=== PATIENT | female | born 1930 | race Caucasian/White ===

== ENCOUNTER 2018-12-27 17:30 | Inpatient (IN) | payer MEDICARE | END 2018-12-30 14:20 | disposition home or self-care (01) | LOC: ER 17:30 → SUR 3N 21:17 | DX: J18.1 Lobar pneumonia, unspecified organism (principal); N17.9 Acute kidney failure, unspecified; L03.211 Cellulitis of face; N18.9 Chronic kidney disease, unspecified; E11.22 Type 2 diabetes mellitus with diabetic chronic kidney disease; I50.9 Heart failure, unspecified ==

== ENCOUNTER 2019-04-24 10:55 | Inpatient (IN) | payer MEDICARE ==
[~2019-04-24] VITALS: Ht 147.3 cm; Wt 75.5 kg
[~2019-04-24 10:55] MED LIST: AMLO2.5T2 PO; CEPH500C5 PO; DOXY100C2 PO; FURO-150 PO; GLIM1TAB3 PO; LEVO50TA PO; LOVA20TA2 PO; OSC500T PO; OXYB5TAB16 PO
[2019-04-24 11:27] LABS: BASOPHILS # (AUTO) 0.1 X10'3 (0-0.2); BASOPHILS % (AUTO) 0.9 % (0-1); EOSINOPHILS # (AUTO) 0.1 X10'3 (0-0.9); EOSINOPHILS % (AUTO) 2.3 % (0-6); HEMATOCRIT 36.5 % (35.0-45.0); HEMOGLOBIN 12.2 g/dl (12.0-16.0); LYMPHOCYTES % (AUTO) 15.2 % (21-51); MEAN CORPUSCULAR HEMOGLOBIN 33.7 PG (27.0-31.0); MEAN CORPUSCULAR HGB CONC 33.3 g/dL (33.0-36.5); MEAN CORPUSCULAR VOLUME 101.3 FL (78-98); MEAN PLATELET VOLUME 8.8 FL (7.4-10.4); MONOCYTES # (AUTO) 0.4 X10'3 (0-0.9); MONOCYTES % (AUTO) 5.5 % (2-12); NEUTROPHILS % (AUTO) 76.1 % (42-75); PLATELET COUNT 245 X10'3 (140-440); RED BLOOD COUNT 3.61 X10'6 (4.20-5.60); WHITE BLOOD COUNT 6.6 X10'3 (4.5-11.0)
[2019-04-24 11:38] LABS: PARTIAL THROMBOPLASTIN TIME 28 SECONDS (22-32)
[2019-04-24] MEDS ORDERED: morphine 4 MG/ML inj SYRINge IV PRN (12:25)
[2019-04-24] MEDS ORDERED: normal saline 1000ML IV soln IVB ONE (12:25)
[2019-04-24] MEDS ORDERED: ondansetron/PF 4mg/2ml inj IV ONE (12:25)
[2019-04-24 12:48] LABS: ALANINE AMINOTRANSFERASE 120 U/L (12-78); ALBUMIN 3.5 G/DL (3.4-5.0); ALBUMIN/GLOBULIN RATIO 0.9 (1.1-1.5); ALKALINE PHOSPHATASE 232 IU/L (46-116); ANION GAP 11 (8-16); ASPARTATE AMINO TRANSFERASE 37 U/L (10-37); BILIRUBIN,TOTAL 0.3 MG/DL (0.1-1.0); BLOOD UREA NITROGEN 47 MG/DL (7-18); BUN/CREATININE RATIO 27.2 (6.6-38.0); CALCIUM 9.3 MG/DL (8.5-10.1); CHLORIDE 104 MMOL/L (99-107); CREATININE 1.73 MG/DL (0.40-0.90); GLUCOSE 254 MG/DL (70-104); POTASSIUM 4.3 MMOL/L (3.5-5.1); SODIUM 139 MMOL/L (135-145); TOTAL CARBON DIOXIDE 23.6 MMOL/L (24-32); TOTAL PROTEIN 7.4 G/DL (6.4-8.2); eGFR 28 ML/MIN
--- NOTE | 2019-04-24 13:02 | NUR ---
GOT CALL FOR LAB REGARDING PT PROCALCITONIN ORDERS,SPOKE TO DR PAIZ WHETHER PT NEED 2 PROCAL OR ONE ? PER MD IT WAS DUPLICATE HE JUST NEED ONE PROCAL.NOTIFIED THE LAB.
[2019-04-24 13:11] LABS: C-REACTIVE PROTEIN 0.83 MG/DL (0.0-0.5)
--- NOTE | 2019-04-24 13:28 | NUR ---
pt to ct scan.will start iv fluid once pt is back.
--- NOTE | 2019-04-24 14:50 | NUR ---
ultrasound at bedside
[2019-04-24] MEDS ORDERED: CefTRIAXone 2gm/D5W 50ml 50 ML IV ONE (15:10)
[2019-04-24] MEDS ORDERED: BETA1TAB20 PO (15:30)
[2019-04-24] MEDS ORDERED: FURO40TA4 PO (15:30)
[2019-04-24] MEDS ORDERED: LEVO100T PO (15:30)
--- NOTE | 2019-04-24 15:49 | NUR ---
Spoke to James. Pt NPO after MN for surgery tomorrow.
[2019-04-24] MEDS ORDERED: acetaminophen 325mg tablet PO PRN ×2 (16:35)
[2019-04-24] MEDS: K and/or MAG REPLACEMENT MC SCH (16:35)
[2019-04-24] MEDS ORDERED: diphenhydrAMINE 25mg capsule PO PRN (16:35)
[2019-04-24] MEDS ORDERED: dextrose ORAL solution 15 GM/59 ML bottle PO PRN ×2 (16:35)
[2019-04-24] MEDS ORDERED: HYDROcodone/acetaminophen 5mg/325mg tablet PO PRN (16:35)
[2019-04-24] MEDS ORDERED: morphine 2 MG/ML inj. syringe IV PRN (16:35)
[2019-04-24] MEDS ORDERED: ondansetron/PF 4mg/2ml inj IV PRN (16:35)
[2019-04-24] MEDS ORDERED: magnesium 4gm in 100ml NS 100 ML IV PRN (16:35)
[2019-04-24] MEDS ORDERED: mag hydrox/Alum hydrox/simeth 30ml oral suspension PO PRN (16:35)
[2019-04-24] MEDS ORDERED: magnesium 2GM in 50ml NS 50 ML IV PRN (16:35)
[2019-04-24] MEDS ORDERED: insulin Lispro (HumaLOG) vial - multi-dose SQ SCH (16:35)
[2019-04-24] MEDS ORDERED: MESSAGE TO PHARMACY PO ONE (16:35)
[2019-04-24] MEDS ORDERED: magnesium Cl slow-release 64mg tablet PO PRN (16:35)
[2019-04-24] MEDS ORDERED: glucagon, human recombinant 1mg kit SUBCUT PRN (16:35)
[2019-04-24] MEDS ORDERED: dextrose 50%-water 50ml dispensing syringe IV PRN ×2 (16:35)
[2019-04-24] MEDS ORDERED: potassium CL 10mEq/100ml bag 100 ML IV PRN ×2 (16:35)
[2019-04-24] MEDS ORDERED: magnesium hydroxide 30ml (MOM) UD suspension PO PRN (16:35)
[2019-04-24] MEDS ORDERED: potassium Cl 20 mEq SR tablet PO PRN ×2 (16:35)
[2019-04-24 17:27] LABS: HEMOGLOBIN A1C 6.3 % (4.5-6.2); LIPASE 210 U/L (73-393)
[2019-04-24] MEDS: normal saline 1000ml 1,000 ML IV SCH (18:26)
--- NOTE | 2019-04-24 18:53 | NUR ---
report called from ER, Steven ANGUIANO. awaiting pt arrival to unit
[2019-04-24] MEDS: morphine 2 MG/ML inj. syringe IV PRN (18:56)
[2019-04-24 19:00] VITALS: BP 145/73
--- NOTE | 2019-04-24 19:00 | NUR ---
pt arrived to unit via gurney, accompanied by daughter. vital signs taken, still complaining of pain in RUQ despite pain medication given in ER prior to arrival. will continue to monitor
[2019-04-24] MEDS: HYDROcodone/acetaminophen 10/325mg tab PO PRN (19:43)
[2019-04-24] MEDS: heparin, porcine 5000 units/ml vial SQ SCH (20:55)
[2019-04-24] MEDS: insulin glargine (Lantus) pen - multi-dose SQ SCH (21:00)
[2019-04-24] MEDS ORDERED: temazepam 15mg capsule PO PRN (21:00)
[2019-04-25] VITALS: BP 144/67
[2019-04-25] MEDS: normal saline 1000ml 1,000 ML IV SCH ×3 (02:35→16:51)
[2019-04-25 03:54] VITALS: BP 144/67
[2019-04-25 05:34] LABS: BASOPHILS % (AUTO) 0.8 % (0-1); EOSINOPHILS # (AUTO) 0.2 X10'3 (0-0.9); HEMATOCRIT 31.6 % (35.0-45.0); HEMOGLOBIN 10.7 g/dl (12.0-16.0); LYMPHOCYTES # (AUTO) 0.7 X10'3 (1.1-4.8); LYMPHOCYTES % (AUTO) 12.7 % (21-51); MEAN CORPUSCULAR HEMOGLOBIN 34.9 PG (27.0-31.0); MEAN CORPUSCULAR VOLUME 102.7 FL (78-98); MEAN PLATELET VOLUME 8.7 FL (7.4-10.4); MONOCYTES # (AUTO) 0.5 X10'3 (0-0.9); MONOCYTES % (AUTO) 8.8 % (2-12); NEUTROPHILS # (AUTO) 3.9 X10'3 (1.8-7.7); NEUTROPHILS % (AUTO) 74.7 % (42-75); PLATELET COUNT 199 X10'3 (140-440); RED BLOOD COUNT 3.08 X10'6 (4.20-5.60); RED CELL DISTRIBUTION WIDTH 14.1 % (11.5-14.5); WHITE BLOOD COUNT 5.2 X10'3 (4.5-11.0)
[2019-04-25 05:49] LABS: ALANINE AMINOTRANSFERASE 88 U/L (12-78); ALBUMIN 2.8 G/DL (3.4-5.0); ALBUMIN/GLOBULIN RATIO 0.8 (1.1-1.5); ALKALINE PHOSPHATASE 187 IU/L (46-116); ANION GAP 7 (8-16); ASPARTATE AMINO TRANSFERASE 28 U/L (10-37); BILIRUBIN,TOTAL 0.2 MG/DL (0.1-1.0); BLOOD UREA NITROGEN 41 MG/DL (7-18); BUN/CREATININE RATIO 26.1 (6.6-38.0); CALCIUM 8.6 MG/DL (8.5-10.1); CHLORIDE 112 MMOL/L (99-107); CHOL/HDL RATIO 3.2 (0.00-4.99); CHOLESTEROL 145 MG/DL (0-200); CREATININE 1.57 MG/DL (0.40-0.90); GLUCOSE 85 MG/DL (70-104); HDL CHOLESTEROL 45 MG/DL (35-60); LDL CHOLESTEROL 72 MG/DL (50-100); MAGNESIUM 2.3 MG/DL (1.5-2.4); PHOSPHORUS 4.4 MG/DL (2.3-4.5); POTASSIUM 4.3 MMOL/L (3.5-5.1); SODIUM 145 MMOL/L (135-145); TOTAL CARBON DIOXIDE 26.1 MMOL/L (24-32); TOTAL PROTEIN 6.1 G/DL (6.4-8.2); TRIGLYCERIDES 154 MG/DL (20-135); eGFR 31 ML/MIN
[2019-04-25] MEDS: morphine 2 MG/ML inj. syringe IV PRN ×3 (06:20→23:20)
--- NOTE | 2019-04-25 06:39 | NUR ---
Problems reprioritized. Patient report given, questions answered & plan of care reviewed with SILVIO Sharp.
[2019-04-25 07:10] VITALS: BP 113/50
[2019-04-25] MEDS: beta-carotene(A) w/C & E + minerals tab PO SCH (08:00)
[2019-04-25] MEDS: atorvastatin 10mg tablet PO SCH (08:00)
[2019-04-25] MEDS: levoTHYROXINE 100mcg tablet PO SCH (08:00)
[2019-04-25] MEDS: calcium carbonate 500mg tablet PO SCH (08:00)
[2019-04-25] MEDS: amLODIPine 2.5mg tablet PO SCH (08:00)
[2019-04-25] MEDS: CefTRIAXone/D5W-Rocephin 1gm 50 ML IV SCH (08:00)
[2019-04-25] MEDS ORDERED: sincalide inj 1.6 MCG in normal saline 50ml IV soln 50 ML IV ONE (08:00)
[2019-04-25] MEDS: K and/or MAG REPLACEMENT MC SCH (08:00)
[2019-04-25] MEDS: heparin, porcine 5000 units/ml vial SQ SCH ×2 (08:00→20:37)
[2019-04-25] MEDS ORDERED: ringers solution, lacted 1,000 ML IV SCH (10:59)
[2019-04-25 11:00] VITALS: BP 115/60
[2019-04-25] MEDS ORDERED: ondansetron/PF 4mg/2ml inj IV PRN (11:00)
[2019-04-25] MEDS ORDERED: morphine 4 MG/ML inj SYRINge IV PRN ×2 (11:00)
[2019-04-25] MEDS ORDERED: meperidine/PF 25mg/ml syringe IV PRN ×3 (11:00)
[2019-04-25] MEDS ORDERED: proCHLORperazine 10 MG/2 ml inj IV PRN (11:00)
--- NOTE | 2019-04-25 18:19 | NUR ---
Problems reprioritized. Patient report given, questions answered & plan of care reviewed with SILVIO Morel.
--- NOTE | 2019-04-25 18:38 | NUR ---
Patient in room [facility]. I have received report from SILVIO Armstrong and had the opportunity to ask questions and assume patient care. Addendum: 04/25/19 at 1839 by Jaja Valenzuela RN Amended: Links added.
--- NOTE | 2019-04-25 20:44 | NUR ---
Dr. Brooks seen patient tonight and stated its ok to give heparin tonight for patient.
[2019-04-25] MEDS: insulin glargine (Lantus) pen - multi-dose SQ SCH (21:00)
[2019-04-26] VITALS (18 sets, daily range): BP systolic 112–167; BP diastolic 60–83
--- NOTE | 2019-04-26 06:10 | NUR ---
Patient in room [facility]. I have received report from Maria Teresa Rivera RN and had the opportunity to ask questions and assume patient care.
[2019-04-26 06:12] LABS: ALANINE AMINOTRANSFERASE 66 U/L (12-78); ALBUMIN 2.7 G/DL (3.4-5.0); ALBUMIN/GLOBULIN RATIO 0.8 (1.1-1.5); ALKALINE PHOSPHATASE 176 IU/L (46-116); ANION GAP 9 (8-16); ASPARTATE AMINO TRANSFERASE 20 U/L (10-37); BILIRUBIN,TOTAL 0.2 MG/DL (0.1-1.0); BLOOD UREA NITROGEN 35 MG/DL (7-18); BUN/CREATININE RATIO 26.3 (6.6-38.0); CALCIUM 8.9 MG/DL (8.5-10.1); CHLORIDE 111 MMOL/L (99-107); CREATININE 1.33 MG/DL (0.40-0.90); GLUCOSE 99 MG/DL (70-104); MAGNESIUM 2.1 MG/DL (1.5-2.4); PHOSPHORUS 3.9 MG/DL (2.3-4.5); POTASSIUM 3.9 MMOL/L (3.5-5.1); SODIUM 143 MMOL/L (135-145); TOTAL CARBON DIOXIDE 22.8 MMOL/L (24-32); eGFR 38 ML/MIN
--- NOTE | 2019-04-26 06:13 | NUR ---
Problems reprioritized. Patient report given, questions answered & plan of care reviewed with SILVIO STARKS. Addendum: 04/26/19 at 0613 by Jaja Valenzuela RN Amended: Links added.
[2019-04-26 06:14] LABS: BASOPHILS # (AUTO) 0.1 X10'3 (0-0.2); BASOPHILS % (AUTO) 1.1 % (0-1); EOSINOPHILS # (AUTO) 0.2 X10'3 (0-0.9); EOSINOPHILS % (AUTO) 4.3 % (0-6); HEMATOCRIT 31.3 % (35.0-45.0); HEMOGLOBIN 10.5 g/dl (12.0-16.0); LYMPHOCYTES # (AUTO) 0.7 X10'3 (1.1-4.8); MEAN CORPUSCULAR HGB CONC 33.7 g/dL (33.0-36.5); MEAN CORPUSCULAR VOLUME 106.9 FL (78-98); MEAN PLATELET VOLUME 8.9 FL (7.4-10.4); MONOCYTES # (AUTO) 0.5 X10'3 (0-0.9); MONOCYTES % (AUTO) 10.2 % (2-12); NEUTROPHILS # (AUTO) 3.6 X10'3 (1.8-7.7); NEUTROPHILS % (AUTO) 70.4 % (42-75); PLATELET COUNT 184 X10'3 (140-440); RED BLOOD COUNT 2.93 X10'6 (4.20-5.60); RED CELL DISTRIBUTION WIDTH 14.1 % (11.5-14.5); WHITE BLOOD COUNT 5.1 X10'3 (4.5-11.0)
[2019-04-26] MEDS: normal saline 1000ml 1,000 ML IV SCH ×2 (06:41→16:08)
[2019-04-26] MEDS: furosemide 40mg tablet PO SCH (06:51)
[2019-04-26] MEDS: K and/or MAG REPLACEMENT MC SCH (06:51)
[2019-04-26] MEDS: calcium carbonate 500mg tablet PO SCH (06:52)
[2019-04-26] MEDS: atorvastatin 10mg tablet PO SCH (06:52)
[2019-04-26] MEDS: levoTHYROXINE 100mcg tablet PO SCH (06:52)
[2019-04-26] MEDS: amLODIPine 2.5mg tablet PO SCH (06:52)
[2019-04-26] MEDS: beta-carotene(A) w/C & E + minerals tab PO SCH (06:52)
[2019-04-26 07:46] LABS: PARTIAL THROMBOPLASTIN TIME 29 SECONDS (22-32)
[2019-04-26] MEDS: CefTRIAXone/D5W-Rocephin 1gm 50 ML IV SCH (08:00)
[2019-04-26] MEDS: morphine 2 MG/ML inj. syringe IV PRN (08:08)
--- NOTE | 2019-04-26 08:12 | NUR ---
Pt off the floor to OR
[2019-04-26] MEDS ORDERED: LIDOcaine 1%/PF 5ML 10 MG/ML VIAL ONE (09:13)
[2019-04-26] MEDS ORDERED: sevoflurane 250ml liquid IH ONE (09:13)
[2019-04-26] MEDS ORDERED: ketorolac trometh. 30mg/ml inj. ONE (09:13)
[2019-04-26] MEDS ORDERED: glycopyrrolate 0.2mg/ml inj ONE (09:13)
[2019-04-26] MEDS ORDERED: dexamethasone sod phosphate 10mg/ml inj ONE (09:13)
[2019-04-26] MEDS ORDERED: neostigmine methylsulfate 1 MG/ML 10ml vial ONE (09:13)
[2019-04-26] MEDS ORDERED: ondansetron/PF 4mg/2ml inj IV PRN (09:15)
[2019-04-26] MEDS ORDERED: meperidine/PF 25mg/ml syringe IV PRN ×3 (09:15)
[2019-04-26] MEDS ORDERED: proCHLORperazine 10 MG/2 ml inj IV PRN (09:15)
[2019-04-26] MEDS ORDERED: morphine 4 MG/ML inj SYRINge IV PRN ×2 (09:15)
[2019-04-26] MEDS ORDERED: ringers solution, lacted 1,000 ML IV SCH (09:15)
[2019-04-26] MEDS ORDERED: midazolam 2 mg/2 ml injection ONE (09:22)
[2019-04-26] MEDS ORDERED: fentaNYL/PF 50MCG/1 ML 2ML syringe ONE (09:22)
[2019-04-26] MEDS ORDERED: propofol inj 20 ML IV ONE (09:30)
[2019-04-26] MEDS ORDERED: ondansetron/PF 4mg/2ml inj ONE (09:30)
[2019-04-26] MEDS ORDERED: LIDOcaine 2% (20mg/ml) 5ml vial ONE (09:30)
[2019-04-26] MEDS ORDERED: ceFAZolin 1000mg inj ONE (09:31)
[2019-04-26] MEDS ORDERED: BUPIVAcaine/PF 2.5 mg/ml (0.25%) 30ml vial ONE (09:31)
[2019-04-26] MEDS ORDERED: meperidine/PF 50mg/ml syringe ONE (10:52)
[2019-04-26] MEDS ORDERED: acetaminophen 1,000mg/100ml IV 100 ML IV ONE (10:53)
[2019-04-26] MEDS ORDERED: rocuronium 10mg/ml inj IV ONE (11:09)
--- NOTE | 2019-04-26 11:30 | NUR ---
Received from OR via MEDICAL BED, accompanied by Anesthesiologist DR. WALL and report given by Anesthesiolgist. PT ARRIVED SLEEPING. VSS ON 10L MASK. PUSLES AND COMPUTER SOFTWARE ENGINEER WNL. DRESSING TO ABD CDI. WILLY & BILIARY DRAINS NOTED. FC TO GRAVITY DRAIN. SCD IN PLACE
--- NOTE | 2019-04-26 12:00 | NUR ---
Received report from ORAL THERAPIST.
--- NOTE | 2019-04-26 12:15 | NUR ---
UNABLE TO ADMIN 1200 ACCUCHECK. PT IN SURGERY
--- NOTE | 2019-04-26 12:30 | NUR ---
Report called to receiving nurse TEREZA RN. Transferred via MEDICAL BED TO ROOM 355A. DAUGHTER AT BEDSIDE. NO Belongings BROUGHT WITH PT TO RR. Special Issues communicated to receiving nurse. VSS ON 4L NC
--- NOTE | 2019-04-26 12:30 | NUR ---
Pt arrived to room [facility] from [facility]. Addendum: 04/26/19 at 1336 by Bernadine Heaton RN NG tube in place upon arrival.
--- NOTE | 2019-04-26 18:20 | NUR ---
Problems reprioritized. Patient report given, questions answered & plan of care reviewed with Maria Teresa Rivera RN.
--- NOTE | 2019-04-26 18:38 | NUR ---
Patient in room [facility]. I have received report from SILVIO Colindres and had the opportunity to ask questions and assume patient care. Addendum: 04/26/19 at 1838 by Jaja Valenzuela RN Amended: Links added.
[2019-04-26] MEDS: insulin glargine (Lantus) pen - multi-dose SQ SCH (21:00)
[2019-04-27] VITALS: BP 131/74
[2019-04-27] MEDS: normal saline 1000ml 1,000 ML IV SCH ×3 (02:00→22:43)
[2019-04-27] MEDS: morphine 2 MG/ML inj. syringe IV PRN ×4 (04:18→20:00)
--- NOTE | 2019-04-27 06:05 | NUR ---
Patient in room [facility]. I have received report from Maria Teresa Rivera RN and had the opportunity to ask questions and assume patient care.
[2019-04-27 06:13] LABS: BASOPHILS % (AUTO) 0.4 % (0-1); EOSINOPHILS % (AUTO) 0.3 % (0-6); HEMATOCRIT 29.6 % (35.0-45.0); HEMOGLOBIN 9.9 g/dl (12.0-16.0); LYMPHOCYTES # (AUTO) 0.7 X10'3 (1.1-4.8); LYMPHOCYTES % (AUTO) 8.2 % (21-51); MEAN CORPUSCULAR HEMOGLOBIN 34.1 PG (27.0-31.0); MEAN CORPUSCULAR HGB CONC 33.3 g/dL (33.0-36.5); MEAN CORPUSCULAR VOLUME 102.5 FL (78-98); MEAN PLATELET VOLUME 9.2 FL (7.4-10.4); MONOCYTES # (AUTO) 0.8 X10'3 (0-0.9); MONOCYTES % (AUTO) 9.6 % (2-12); NEUTROPHILS # (AUTO) 6.7 X10'3 (1.8-7.7); NEUTROPHILS % (AUTO) 81.5 % (42-75); PLATELET COUNT 191 X10'3 (140-440); RED BLOOD COUNT 2.89 X10'6 (4.20-5.60); RED CELL DISTRIBUTION WIDTH 14.1 % (11.5-14.5); WHITE BLOOD COUNT 8.2 X10'3 (4.5-11.0)
--- NOTE | 2019-04-27 06:14 | NUR ---
Problems reprioritized. Patient report given, questions answered & plan of care reviewed with SILVIO Colindres.
[2019-04-27 06:30] VITALS: BP 134/68
[2019-04-27 06:30] LABS: ALANINE AMINOTRANSFERASE 79 U/L (12-78); ALBUMIN 2.6 G/DL (3.4-5.0); ALBUMIN/GLOBULIN RATIO 0.8 (1.1-1.5); ALKALINE PHOSPHATASE 162 IU/L (46-116); ANION GAP 12 (8-16); ASPARTATE AMINO TRANSFERASE 42 U/L (10-37); BILIRUBIN,TOTAL 0.2 MG/DL (0.1-1.0); BLOOD UREA NITROGEN 38 MG/DL (7-18); CALCIUM 8.4 MG/DL (8.5-10.1); CHLORIDE 114 MMOL/L (99-107); CREATININE 1.52 MG/DL (0.40-0.90); GLUCOSE 97 MG/DL (70-104); PHOSPHORUS 4.2 MG/DL (2.3-4.5); POTASSIUM 4.3 MMOL/L (3.5-5.1); SODIUM 145 MMOL/L (135-145); TOTAL CARBON DIOXIDE 19.4 MMOL/L (24-32); TOTAL PROTEIN 5.8 G/DL (6.4-8.2); eGFR 32 ML/MIN
[2019-04-27] MEDS: K and/or MAG REPLACEMENT MC SCH (07:21)
[2019-04-27] MEDS: amLODIPine 2.5mg tablet PO SCH (09:38)
[2019-04-27] MEDS: CefTRIAXone/D5W-Rocephin 1gm 50 ML IV SCH (09:38)
[2019-04-27] MEDS: beta-carotene(A) w/C & E + minerals tab PO SCH (09:38)
[2019-04-27] MEDS: levoTHYROXINE 100mcg tablet PO SCH (09:39)
[2019-04-27] MEDS: atorvastatin 10mg tablet PO SCH (09:39)
[2019-04-27] MEDS: calcium carbonate 500mg tablet PO SCH (09:39)
[2019-04-27] MEDS ORDERED: ketorolac tromethamine 15mg/ml inj. IV ONE (10:30)
[2019-04-27 11:00] VITALS: BP 152/80
[2019-04-27 18:00] VITALS: BP 123/79
--- NOTE | 2019-04-27 18:05 | NUR ---
Problems reprioritized. Patient report given, questions answered & plan of care reviewed with SILVIO Vásquez.
[2019-04-27] MEDS: HYDROcodone/acetaminophen 10/325mg tab PO PRN ×2 (18:54→22:48)
[2019-04-27] MEDS: lactobacillus rhamnosus 10,000 MMU CELLS/CAPSULE PO SCH (20:08)
[2019-04-27] MEDS: heparin, porcine 5000 units/ml vial SQ SCH (20:12)
[2019-04-27] MEDS: insulin glargine (Lantus) pen - multi-dose SQ SCH (21:00)
[2019-04-28] VITALS: BP 141/69
[2019-04-28] MEDS: morphine 2 MG/ML inj. syringe IV PRN ×4 (02:22→19:19)
[2019-04-28] MEDS: HYDROcodone/acetaminophen 10/325mg tab PO PRN ×4 (05:36→23:31)
[2019-04-28 06:04] LABS: BASOPHILS % (AUTO) 0.6 % (0-1); EOSINOPHILS # (AUTO) 0.2 X10'3 (0-0.9); EOSINOPHILS % (AUTO) 2.8 % (0-6); HEMATOCRIT 27.3 % (35.0-45.0); LYMPHOCYTES # (AUTO) 0.9 X10'3 (1.1-4.8); LYMPHOCYTES % (AUTO) 10.6 % (21-51); MEAN CORPUSCULAR HEMOGLOBIN 33.7 PG (27.0-31.0); MEAN CORPUSCULAR VOLUME 102.4 FL (78-98); MONOCYTES # (AUTO) 0.7 X10'3 (0-0.9); MONOCYTES % (AUTO) 8.3 % (2-12); NEUTROPHILS # (AUTO) 6.4 X10'3 (1.8-7.7); NEUTROPHILS % (AUTO) 77.7 % (42-75); PLATELET COUNT 180 X10'3 (140-440); RED BLOOD COUNT 2.67 X10'6 (4.20-5.60); WHITE BLOOD COUNT 8.2 X10'3 (4.5-11.0)
--- NOTE | 2019-04-28 06:05 | NUR ---
Patient in room [facility]. I have received report from SILVIO Vásquez and had the opportunity to ask questions and assume patient care.
--- NOTE | 2019-04-28 06:11 | NUR ---
Problems reprioritized. Patient report given, questions answered & plan of care reviewed with Bernadine RN.
[2019-04-28 06:30] VITALS: BP 143/75
[2019-04-28 06:31] LABS: ALANINE AMINOTRANSFERASE 60 U/L (12-78); ALBUMIN 2.5 G/DL (3.4-5.0); ALBUMIN/GLOBULIN RATIO 0.8 (1.1-1.5); ALKALINE PHOSPHATASE 139 IU/L (46-116); ANION GAP 11 (8-16); ASPARTATE AMINO TRANSFERASE 27 U/L (10-37); BILIRUBIN,TOTAL 0.2 MG/DL (0.1-1.0); BLOOD UREA NITROGEN 31 MG/DL (7-18); BUN/CREATININE RATIO 22.3 (6.6-38.0); CALCIUM 8.4 MG/DL (8.5-10.1); CHLORIDE 114 MMOL/L (99-107); CREATININE 1.39 MG/DL (0.40-0.90); GLUCOSE 97 MG/DL (70-104); MAGNESIUM 1.8 MG/DL (1.5-2.4); POTASSIUM 4.2 MMOL/L (3.5-5.1); SODIUM 145 MMOL/L (135-145); TOTAL CARBON DIOXIDE 20.5 MMOL/L (24-32); TOTAL PROTEIN 5.7 G/DL (6.4-8.2); eGFR 36 ML/MIN
[2019-04-28] MEDS: K and/or MAG REPLACEMENT MC SCH (07:14)
[2019-04-28] MEDS ORDERED: enoxaparin 30mg/0.3ml syringe SUBCUT SCH (08:00)
[2019-04-28] MEDS: CefTRIAXone/D5W-Rocephin 1gm 50 ML IV SCH (08:02)
[2019-04-28] MEDS: normal saline 1000ml 1,000 ML IV SCH ×2 (08:02→21:19)
[2019-04-28] MEDS: amLODIPine 2.5mg tablet PO SCH (08:09)
[2019-04-28] MEDS: furosemide 40mg tablet PO SCH (08:09)
[2019-04-28] MEDS: calcium carbonate 500mg tablet PO SCH (08:09)
[2019-04-28] MEDS: beta-carotene(A) w/C & E + minerals tab PO SCH (08:09)
[2019-04-28] MEDS: levoTHYROXINE 100mcg tablet PO SCH (08:09)
[2019-04-28] MEDS: lactobacillus rhamnosus 10,000 MMU CELLS/CAPSULE PO SCH ×2 (08:09→19:19)
[2019-04-28] MEDS: atorvastatin 10mg tablet PO SCH (08:09)
[2019-04-28] MEDS: heparin, porcine 5000 units/ml vial SQ SCH ×2 (08:09→19:19)
[2019-04-28 11:00] VITALS: BP 128/76
--- NOTE | 2019-04-28 18:15 | NUR ---
Patient in room [facility]. I have received report from SILVIO Colindres and had the opportunity to ask questions and assume patient care.
--- NOTE | 2019-04-28 18:40 | NUR ---
Problems reprioritized. Patient report given, questions answered & plan of care reviewed with SILVIO Contreras.
[2019-04-28 20:00] VITALS: BP 143/64
[2019-04-28] MEDS: insulin glargine (Lantus) pen - multi-dose SQ SCH (21:00)
[2019-04-29] VITALS: BP 162/79
[2019-04-29] MEDS: morphine 2 MG/ML inj. syringe IV PRN ×2 (04:34→12:51)
[2019-04-29 05:31] LABS: BASOPHILS % (AUTO) 0.4 % (0-1); EOSINOPHILS # (AUTO) 0.2 X10'3 (0-0.9); EOSINOPHILS % (AUTO) 2.8 % (0-6); HEMATOCRIT 26.7 % (35.0-45.0); LYMPHOCYTES # (AUTO) 0.8 X10'3 (1.1-4.8); LYMPHOCYTES % (AUTO) 11.3 % (21-51); MEAN CORPUSCULAR HGB CONC 33.8 g/dL (33.0-36.5); MEAN CORPUSCULAR VOLUME 103.5 FL (78-98); MEAN PLATELET VOLUME 9.2 FL (7.4-10.4); MONOCYTES # (AUTO) 0.6 X10'3 (0-0.9); MONOCYTES % (AUTO) 8.1 % (2-12); NEUTROPHILS # (AUTO) 5.7 X10'3 (1.8-7.7); NEUTROPHILS % (AUTO) 77.4 % (42-75); PLATELET COUNT 192 X10'3 (140-440); RED BLOOD COUNT 2.58 X10'6 (4.20-5.60); WHITE BLOOD COUNT 7.3 X10'3 (4.5-11.0)
[2019-04-29 05:49] LABS: ALANINE AMINOTRANSFERASE 48 U/L (12-78); ALBUMIN 2.5 G/DL (3.4-5.0); ALBUMIN/GLOBULIN RATIO 0.7 (1.1-1.5); ALKALINE PHOSPHATASE 130 IU/L (46-116); ANION GAP 12 (8-16); ASPARTATE AMINO TRANSFERASE 21 U/L (10-37); BILIRUBIN,TOTAL 0.2 MG/DL (0.1-1.0); BLOOD UREA NITROGEN 25 MG/DL (7-18); BUN/CREATININE RATIO 18.5 (6.6-38.0); CALCIUM 8.8 MG/DL (8.5-10.1); CHLORIDE 112 MMOL/L (99-107); CREATININE 1.35 MG/DL (0.40-0.90); GLUCOSE 106 MG/DL (70-104); MAGNESIUM 1.6 MG/DL (1.5-2.4); PHOSPHORUS 2.9 MG/DL (2.3-4.5); POTASSIUM 3.8 MMOL/L (3.5-5.1); SODIUM 143 MMOL/L (135-145); TOTAL CARBON DIOXIDE 18.9 MMOL/L (24-32); eGFR 37 ML/MIN
--- NOTE | 2019-04-29 06:30 | NUR ---
Problems reprioritized. Patient report given, questions answered & plan of care reviewed with SILVIO Jo.
[2019-04-29 07:00] VITALS: BP 144/71
[2019-04-29] MEDS: calcium carbonate 500mg tablet PO SCH (08:00)
[2019-04-29] MEDS: K and/or MAG REPLACEMENT MC SCH (08:00)
[2019-04-29] MEDS: CefTRIAXone/D5W-Rocephin 1gm 50 ML IV SCH (08:43)
[2019-04-29] MEDS: lactobacillus rhamnosus 10,000 MMU CELLS/CAPSULE PO SCH ×2 (08:44→19:12)
[2019-04-29] MEDS: levoTHYROXINE 100mcg tablet PO SCH (08:44)
[2019-04-29] MEDS: beta-carotene(A) w/C & E + minerals tab PO SCH (08:44)
[2019-04-29] MEDS: amLODIPine 2.5mg tablet PO SCH (08:44)
[2019-04-29] MEDS: heparin, porcine 5000 units/ml vial SQ SCH ×2 (08:45→19:13)
[2019-04-29] MEDS: normal saline 1000ml 1,000 ML IV SCH ×2 (08:53→18:34)
[2019-04-29] MEDS: HYDROcodone/acetaminophen 10/325mg tab PO PRN ×3 (08:53→19:12)
[2019-04-29] MEDS: atorvastatin 10mg tablet PO SCH (08:56)
[2019-04-29 11:00] VITALS: BP 143/80
--- NOTE | 2019-04-29 11:28 | NUR ---
Initial: Pt presented with c/o abdominal pain and admit for choledocholithiasis, now s/p open cholecystectomy. During procedure a mass in the biliary duct was observed, pending pathology results. Pt with WILLY and biliary drain with 600 mL output per I&O. Per RN pt continues to c/o abdominal pain and still with hypoactive bowel sounds and minimal gas with LBM 04/23. Pt currently with no routine bowel care, d/w RN who agrees to d/w MD. Pt currently on clear liquid diet. Will continue to follow. Recommendations: 1) Advance to CHO controlled diet once medically indicated per MD 2) Monitor need for ONS 3) Routine bowel care 4) Wt per rx Addendum: 04/29/19 at [address] Amended: Links added.
--- NOTE | 2019-04-29 18:33 | NUR ---
Patient in room [facility]. I have received report from SILVIO Jo and had the opportunity to ask questions and assume patient care.
[2019-04-29 22:32] VITALS: BP 112/64
[2019-04-30] MEDS: HYDROcodone/acetaminophen 10/325mg tab PO PRN ×3 (00:21→20:34)
[2019-04-30 00:26] VITALS: BP 142/77
[2019-04-30] MEDS: normal saline 1000ml 1,000 ML IV SCH ×2 (02:35→04:35)
[2019-04-30] MEDS: morphine 2 MG/ML inj. syringe IV PRN ×3 (05:02→17:17)
--- NOTE | 2019-04-30 06:21 | NUR ---
Problems reprioritized. Patient report given, questions answered & plan of care reviewed with SILVIO Jo.
[2019-04-30 08:00] VITALS: BP 127/63
[2019-04-30] MEDS: K and/or MAG REPLACEMENT MC SCH (08:00)
[2019-04-30] MEDS: CefTRIAXone/D5W-Rocephin 1gm 50 ML IV SCH (09:03)
[2019-04-30] MEDS: atorvastatin 10mg tablet PO SCH (09:09)
[2019-04-30] MEDS: lactobacillus rhamnosus 10,000 MMU CELLS/CAPSULE PO SCH ×2 (09:09→20:34)
[2019-04-30] MEDS: calcium carbonate 500mg tablet PO SCH (09:09)
[2019-04-30] MEDS: beta-carotene(A) w/C & E + minerals tab PO SCH (09:09)
[2019-04-30] MEDS: furosemide 40mg tablet PO SCH (09:09)
[2019-04-30] MEDS: amLODIPine 2.5mg tablet PO SCH (09:09)
[2019-04-30] MEDS: levoTHYROXINE 100mcg tablet PO SCH (09:09)
[2019-04-30] MEDS: heparin, porcine 5000 units/ml vial SQ SCH ×2 (09:10→20:35)
[2019-04-30] MEDS: piperacillin/tazo 3.375gm/50ml 50 ML IV SCH ×2 (10:23→16:44)
[2019-04-30 11:00] VITALS: BP 139/62
[2019-04-30] MEDS ORDERED: magnesium 4gm in 100ml NS 100 ML IV PRN (16:40)
[2019-04-30] MEDS ORDERED: potassium Cl 20 mEq SR tablet PO PRN ×2 (16:40)
[2019-04-30] MEDS ORDERED: magnesium Cl slow-release 64mg tablet PO PRN (16:40)
[2019-04-30] MEDS ORDERED: potassium CL 10mEq/100ml bag 100 ML IV PRN (16:40)
[2019-04-30 17:53] LABS: % IRON SATURATION 15 % (11-46); IRON 30 UG/DL (49-151); TOTAL IRON BINDING CAPACITY 199 UG/DL (259-388)
[2019-04-30 18:01] LABS: FERRITIN 429 NG/ML (8-252)
[2019-04-30 20:00] VITALS: BP 135/55
[2019-04-30] MEDS: sodium bicarbonate 650mg tablet PO SCH (20:34)
[2019-05-01] VITALS: BP 140/60
[2019-05-01] MEDS: piperacillin/tazo 3.375gm/50ml 50 ML IV SCH ×2 (00:40→08:45)
[2019-05-01] MEDS: normal saline 1000ml 1,000 ML IV SCH (04:35)
[2019-05-01 05:21] LABS: BASOPHILS % (AUTO) 0.6 % (0-1); EOSINOPHILS # (AUTO) 0.2 X10'3 (0-0.9); EOSINOPHILS % (AUTO) 4.1 % (0-6); HEMATOCRIT 26.1 % (35.0-45.0); LYMPHOCYTES # (AUTO) 1.1 X10'3 (1.1-4.8); LYMPHOCYTES % (AUTO) 19.6 % (21-51); MEAN CORPUSCULAR HEMOGLOBIN 35.1 PG (27.0-31.0); MEAN CORPUSCULAR HGB CONC 34.5 g/dL (33.0-36.5); MEAN CORPUSCULAR VOLUME 101.7 FL (78-98); MEAN PLATELET VOLUME 8.3 FL (7.4-10.4); MONOCYTES # (AUTO) 0.5 X10'3 (0-0.9); MONOCYTES % (AUTO) 8.6 % (2-12); NEUTROPHILS # (AUTO) 3.9 X10'3 (1.8-7.7); NEUTROPHILS % (AUTO) 67.1 % (42-75); PLATELET COUNT 227 X10'3 (140-440); RED BLOOD COUNT 2.57 X10'6 (4.20-5.60); RED CELL DISTRIBUTION WIDTH 13.1 % (11.5-14.5); WHITE BLOOD COUNT 5.8 X10'3 (4.5-11.0)
[2019-05-01 05:27] LABS: ALANINE AMINOTRANSFERASE 33 U/L (12-78); ALBUMIN 2.5 G/DL (3.4-5.0); ALBUMIN/GLOBULIN RATIO 0.7 (1.1-1.5); ALKALINE PHOSPHATASE 124 IU/L (46-116); ANION GAP 10 (8-16); ASPARTATE AMINO TRANSFERASE 17 U/L (10-37); BILIRUBIN,TOTAL 0.2 MG/DL (0.1-1.0); BLOOD UREA NITROGEN 20 MG/DL (7-18); BUN/CREATININE RATIO 13.5 (6.6-38.0); CALCIUM 8.8 MG/DL (8.5-10.1); CHLORIDE 113 MMOL/L (99-107); CREATININE 1.48 MG/DL (0.40-0.90); GLUCOSE 93 MG/DL (70-104); MAGNESIUM 1.7 MG/DL (1.5-2.4); PHOSPHORUS 2.6 MG/DL (2.3-4.5); POTASSIUM 3.7 MMOL/L (3.5-5.1); SODIUM 145 MMOL/L (135-145); TOTAL CARBON DIOXIDE 22.1 MMOL/L (24-32); TOTAL PROTEIN 5.9 G/DL (6.4-8.2); eGFR 33 ML/MIN
--- NOTE | 2019-05-01 06:35 | NUR ---
Problems reprioritized. Patient report given, questions answered & plan of care reviewed with SILVIO Barker.
[2019-05-01 07:44] VITALS: BP 164/74
[2019-05-01] MEDS: atorvastatin 10mg tablet PO SCH (07:51)
[2019-05-01] MEDS: calcium carbonate 500mg tablet PO SCH (07:51)
[2019-05-01] MEDS: lactobacillus rhamnosus 10,000 MMU CELLS/CAPSULE PO SCH (07:51)
[2019-05-01] MEDS: sodium bicarbonate 650mg tablet PO SCH ×2 (07:51→12:52)
[2019-05-01] MEDS: levoTHYROXINE 100mcg tablet PO SCH (07:51)
[2019-05-01] MEDS: beta-carotene(A) w/C & E + minerals tab PO SCH (07:51)
[2019-05-01] MEDS: CefTRIAXone/D5W-Rocephin 1gm 50 ML IV SCH (07:51)
[2019-05-01] MEDS: heparin, porcine 5000 units/ml vial SQ SCH (07:51)
[2019-05-01] MEDS: amLODIPine 2.5mg tablet PO SCH (07:51)
[2019-05-01] MEDS: K and/or MAG REPLACEMENT MC SCH (07:52)
[2019-05-01] MEDS: HYDROcodone/acetaminophen 10/325mg tab PO PRN ×2 (07:52→11:24)
--- NOTE | 2019-05-01 10:20 | NUR ---
Patient in room [facility]. I have received report from Maria Teresa ANGUIANO and had the opportunity to ask questions and assume patient care.
[2019-05-01] MEDS ORDERED: AMOX-580 PO (10:35)
[2019-05-01] MEDS ORDERED: LACT1CAP26 PO (10:35)
[2019-05-01] MEDS ORDERED: bisacodyl 10mg suppository rectal RC ONE (11:40)
[2019-05-01 11:46] VITALS: BP 156/78
--- NOTE | 2019-05-01 12:21 | NUR ---
Dr. Douglass called regarding hospitalist discharging pt. okay with discharge, is aware pt hasnt had BM since 04/24, informed MD that pt is passing gas and okay with pt discharging with drains in place. No new orders at this time.
[2019-05-01] MEDS ORDERED: HYDR-4353 PO (13:48)
--- NOTE | 2019-05-01 14:13 | NUR ---
Rx called in to [facility] [address], [place] triplicate given to pt/daughter. Pt discharged with all belongings. W/C to front lobby. Daughter to take pt home. Daughter is educated on abdomen drain care. learning and development manager setting up HH. Pt/daughter understands to followup with Dr. Douglass.
== END 2019-05-01 14:08 | disposition home health service (06) | DRG 408 ==
LOC: ER 10:55 → SUR 3N 19:10 → CMPBEDREQ 04-28 19:34 → SUR 3N 04-29 05:24
PROVIDERS: ADMIT Family Medicine; ATTEND Family Medicine
PROC: CF141ZZ Planar Nuclear Medicine Imaging of Gallbladder using Technetium 99m (Tc-99m) (ICD-10-PCS; 2019-04-25)
PROC: 0F9400Z Drainage of Gallbladder with Drainage Device, Open Approach (ICD-10-PCS; 2019-04-26)
PROC: 0FT40ZZ Resection of Gallbladder, Open Approach (ICD-10-PCS; principal; 2019-04-26 09:13)
DX: K80.00 Calculus of gallbladder with acute cholecystitis without obstruction (principal); N17.0 Acute kidney failure with tubular necrosis; E87.2 Acidosis; I13.0 Hypertensive heart and chronic kidney disease with heart failure and stage 1 through stage 4 chronic kidney disease, or unspecified chronic kidney disease; D53.9 Nutritional anemia, unspecified; E03.9 Hypothyroidism, unspecified; E11.22 Type 2 diabetes mellitus with diabetic chronic kidney disease; E11.65 Type 2 diabetes mellitus with hyperglycemia; E78.5 Hyperlipidemia, unspecified; I50.9 Heart failure, unspecified; N18.9 Chronic kidney disease, unspecified; Z79.890 Hormone replacement therapy; Z80.0 Family history of malignant neoplasm of digestive organs; Z90.49 Acquired absence of other specified parts of digestive tract; Z90.710 Acquired absence of both cervix and uterus; Z88.8 Allergy status to other drugs, medicaments and biological substances
CPT/HCPCS: 36415; 71045; 74018; 74176; 74181; 76700; 78227; 80053; 80061; 82728; 82948; 83036; 83540; 83550; 83690; 83735; 83880; 84100; 84145; 84443; 84484; 85025; 85610; 85651; 85730; 86140; 87081; 88304; 93005; 96361; 96365; 96375; 96376; 97116; 97161; 97530; 99285; A4215; A4618; A7000; A9537; C1758; G0378; J0131; J0690; J0696; J1100; J1644; J1815; J1885; J2001; J2175; J2250; J2270; J2405; J2543; J2704; J2710; J2805; J3010; J3490; J7030; J7120

== ENCOUNTER 2019-05-05 12:21 | Emergency (ER) | payer MEDICARE ==
[~2019-05-05] VITALS: Ht 147.3 cm; Wt 68.0 kg
[~2019-05-05 12:21] MED LIST changes: +AMOX-580 PO; +BETA1TAB20 PO; -CEPH500C5 PO; -DOXY100C2 PO; -FURO-150 PO; +FURO40TA4 PO; +HYDR-4353 PO; +LACT1CAP26 PO; +LEVO100T PO; -LEVO50TA PO; -OXYB5TAB16 PO
[2019-05-05 13:11] LABS: BASOPHILS # (AUTO) 0.1 X10'3 (0-0.2); BASOPHILS % (AUTO) 0.7 % (0-1); EOSINOPHILS # (AUTO) 0.2 X10'3 (0-0.9); EOSINOPHILS % (AUTO) 1.9 % (0-6); HEMATOCRIT 32.9 % (35.0-45.0); LYMPHOCYTES % (AUTO) 9.9 % (21-51); MEAN CORPUSCULAR HEMOGLOBIN 33.3 PG (27.0-31.0); MEAN CORPUSCULAR HGB CONC 33.3 g/dL (33.0-36.5); MEAN PLATELET VOLUME 8.8 FL (7.4-10.4); MONOCYTES # (AUTO) 0.5 X10'3 (0-0.9); MONOCYTES % (AUTO) 5.5 % (2-12); PLATELET COUNT 350 X10'3 (140-440); RED CELL DISTRIBUTION WIDTH 13.7 % (11.5-14.5); WHITE BLOOD COUNT 9.8 X10'3 (4.5-11.0)
[2019-05-05 13:26] LABS: ALANINE AMINOTRANSFERASE 38 U/L (12-78); ALBUMIN 3.1 G/DL (3.4-5.0); ALBUMIN/GLOBULIN RATIO 0.8 (1.1-1.5); ALKALINE PHOSPHATASE 216 IU/L (46-116); AMYLASE 52 U/L (25-115); ANION GAP 11 (8-16); ASPARTATE AMINO TRANSFERASE 21 U/L (10-37); BILIRUBIN,TOTAL 0.2 MG/DL (0.1-1.0); BLOOD UREA NITROGEN 25 MG/DL (7-18); BUN/CREATININE RATIO 17.4 (6.6-38.0); CHLORIDE 105 MMOL/L (99-107); CREATININE 1.44 MG/DL (0.40-0.90); GLUCOSE 156 MG/DL (70-104); LIPASE 65 U/L (73-393); SODIUM 141 MMOL/L (135-145); TOTAL CARBON DIOXIDE 24.8 MMOL/L (24-32); eGFR 34 ML/MIN
[2019-05-05 13:29] LABS: CALCIUM 9.6 MG/DL (8.5-10.1)
[2019-05-05] MEDS ORDERED: morphine 4 MG/ML inj SYRINge IV ONE (13:45)
[2019-05-05] MEDS ORDERED: ondansetron/PF 4mg/2ml inj IV ONE (14:00)
--- NOTE | 2019-05-05 14:44 | NUR ---
PT BACK FROM CT, PT NOW AMBULATORY TO BATHROOM WITH AMARI HAMEED AND HOME WALKER TO PROVIDE URINE SAMPLE PER ORDERS
[2019-05-05 15:03] LABS: CLARITY,URINE CLOUDY (Clear); COLOR,URINE YELLOW (Yellow); GLUCOSE, URINE NEGATIVE (Neg); KETONES,URINE NEGATIVE (Neg); LEUKOCYTE ESTERASE ,URINE LARGE (Neg); NITRITES, URINE NEGATIVE (Neg); OCCULT BLOOD,URINE SMALL (Neg); PH,URINE 5.5 (4.8-8.0); PROTEIN,URINE 100 mg/dl (Neg); UROBILINOGEN,URINE 0.2 E.U/dL (0.2-1.0)
[2019-05-05 15:09] LABS: UA COLLECTION TYPE CLN CATCH MIDSTREAM
[2019-05-05 15:10] LABS: BACTERIA,URINE 3+ /HPF (Neg); SQUAMOUS EPITHELIAL CELL,UR MANY /LPF (FEW); WBC,URINE TNTC /HPF (0-4)
[2019-05-05 15:11] LABS: MUCUS STRANDS MODERATE /LPF (Neg); RENAL CELLS, URINE MODERATE /HPF; WBC CLUMPS,URINE MANY /HPF (NEGATIVE); YEAST MODERATE /HPF (NEGATIVE)
[2019-05-05] MEDS ORDERED: OXYC-145 PO (15:53)
[2019-05-05 16:02] VITALS: BP 157/69
[2019-05-05] MEDS ORDERED: PER10325T PO (16:11)
== END 2019-05-05 16:34 | disposition home or self-care (01) ==
LOC: ER 12:21
DX: G89.18 Other acute postprocedural pain (principal); E78.00 Pure hypercholesterolemia, unspecified; I13.0 Hypertensive heart and chronic kidney disease with heart failure and stage 1 through stage 4 chronic kidney disease, or unspecified chronic kidney disease; E11.22 Type 2 diabetes mellitus with diabetic chronic kidney disease; N18.9 Chronic kidney disease, unspecified; I50.9 Heart failure, unspecified; E03.9 Hypothyroidism, unspecified; Z90.49 Acquired absence of other specified parts of digestive tract; Z90.710 Acquired absence of both cervix and uterus; Z98.890 Other specified postprocedural states; Z79.84 Long term (current) use of oral hypoglycemic drugs; Z88.8 Allergy status to other drugs, medicaments and biological substances; Z79.2 Long term (current) use of antibiotics; Z79.899 Other long term (current) drug therapy
CPT/HCPCS: 36415; 74176; 80053; 81001; 82150; 83690; 85025; 85610; 96374; 96375; 99284; J2270; J2405

== ENCOUNTER 2019-05-12 11:06 | Emergency (ER) | payer MEDICARE ==
[~2019-05-12] VITALS: Ht 147.3 cm; Wt 67.6 kg
[2019-05-12 12:47] LABS: BASOPHILS # (AUTO) 0.1 X10'3 (0-0.2); BASOPHILS % (AUTO) 0.7 % (0-1); EOSINOPHILS # (AUTO) 0.2 X10'3 (0-0.9); EOSINOPHILS % (AUTO) 2.4 % (0-6); HEMATOCRIT 34.2 % (35.0-45.0); HEMOGLOBIN 11.5 g/dl (12.0-16.0); LYMPHOCYTES # (AUTO) 1.1 X10'3 (1.1-4.8); LYMPHOCYTES % (AUTO) 12.5 % (21-51); MEAN CORPUSCULAR HEMOGLOBIN 33.9 PG (27.0-31.0); MEAN CORPUSCULAR HGB CONC 33.8 g/dL (33.0-36.5); MEAN CORPUSCULAR VOLUME 100.3 FL (78-98); MEAN PLATELET VOLUME 8.8 FL (7.4-10.4); MONOCYTES # (AUTO) 0.6 X10'3 (0-0.9); MONOCYTES % (AUTO) 7.5 % (2-12); NEUTROPHILS # (AUTO) 6.5 X10'3 (1.8-7.7); NEUTROPHILS % (AUTO) 76.9 % (42-75); PLATELET COUNT 410 X10'3 (140-440); RED CELL DISTRIBUTION WIDTH 13.4 % (11.5-14.5); WHITE BLOOD COUNT 8.4 X10'3 (4.5-11.0)
[2019-05-12 12:55] LABS: ALANINE AMINOTRANSFERASE 159 U/L (12-78); ALBUMIN 3.2 G/DL (3.4-5.0); ALBUMIN/GLOBULIN RATIO 0.7 (1.1-1.5); ALKALINE PHOSPHATASE 410 IU/L (46-116); ANION GAP 13 (8-16); ASPARTATE AMINO TRANSFERASE 225 U/L (10-37); BILIRUBIN,TOTAL 0.2 MG/DL (0.1-1.0); BLOOD UREA NITROGEN 61 MG/DL (7-18); BUN/CREATININE RATIO 26.6 (6.6-38.0); CALCIUM 9.6 MG/DL (8.5-10.1); CHLORIDE 104 MMOL/L (99-107); CREATININE 2.29 MG/DL (0.40-0.90); GLUCOSE 141 MG/DL (70-104); LIPASE 143 U/L (73-393); POTASSIUM 4.8 MMOL/L (3.5-5.1); SODIUM 139 MMOL/L (135-145); TOTAL CARBON DIOXIDE 22.4 MMOL/L (24-32); TOTAL PROTEIN 7.7 G/DL (6.4-8.2); eGFR 20 ML/MIN
[2019-05-12] MEDS ORDERED: ondansetron 4mg rapidly disintigrating tab PO ONE (14:10)
[2019-05-12] MEDS ORDERED: oxyCODONE/APAP 5-325mg tablet PO ONE (14:10)
--- NOTE | 2019-05-12 14:37 | NUR ---
Completed dressing change at de. applied island dressing to midline incision. applied 4x4 gauze with tape around drain. no signs of infection.
[2019-05-12 14:38] VITALS: BP 156/58
== END 2019-05-12 14:42 | disposition home or self-care (01) ==
LOC: ER 11:06
DX: T81.89XA Other complications of procedures, not elsewhere classified, initial encounter (principal); I13.0 Hypertensive heart and chronic kidney disease with heart failure and stage 1 through stage 4 chronic kidney disease, or unspecified chronic kidney disease; E13.22 Other specified diabetes mellitus with diabetic chronic kidney disease; N18.9 Chronic kidney disease, unspecified; I50.89 Other heart failure; R74.0 Nonspecific elevation of levels of transaminase and lactic acid dehydrogenase [LDH]; E78.00 Pure hypercholesterolemia, unspecified; E07.9 Disorder of thyroid, unspecified; Z88.8 Allergy status to other drugs, medicaments and biological substances; Z90.49 Acquired absence of other specified parts of digestive tract; Z90.710 Acquired absence of both cervix and uterus; Z98.890 Other specified postprocedural states; Z79.84 Long term (current) use of oral hypoglycemic drugs; Z79.899 Other long term (current) drug therapy; Z79.2 Long term (current) use of antibiotics; Y84.8 Other medical procedures as the cause of abnormal reaction of the patient, or of later complication, without mention of misadventure at the time of the procedure; Y92.89 Other specified places as the place of occurrence of the external cause
CPT/HCPCS: 36415; 74176; 80053; 83690; 85025; 99284

== ENCOUNTER 2020-01-02 20:52 | Inpatient (IN) | payer MEDICARE ==
[~2020-01-02] VITALS: Ht 147.3 cm; Wt 73.6 kg
[~2020-01-02 20:52] MED LIST changes: +AMA1T PO; -AMOX-580 PO; -GLIM1TAB3 PO; -HYDR-4353 PO
[2020-01-02] MEDS ORDERED: temazepam 15mg capsule PO PRN (21:00)
[2020-01-02 21:31] LABS: BASOPHILS # (AUTO) 0.1 X10'3 (0-0.2); BASOPHILS % (AUTO) 0.3 % (0-1); EOSINOPHILS # (AUTO) 0.1 X10'3 (0-0.9); EOSINOPHILS % (AUTO) 0.8 % (0-6); HEMOGLOBIN 11.6 g/dl (12.0-16.0); LYMPHOCYTES # (AUTO) 1.2 X10'3 (1.1-4.8); MEAN CORPUSCULAR HEMOGLOBIN 33.9 PG (27.0-31.0); MEAN CORPUSCULAR HGB CONC 33.1 g/dL (33.0-36.5); MEAN CORPUSCULAR VOLUME 102.4 FL (78-98); MEAN PLATELET VOLUME 8.8 FL (7.4-10.4); MONOCYTES # (AUTO) 0.7 X10'3 (0-0.9); MONOCYTES % (AUTO) 4.5 % (2-12); NEUTROPHILS % (AUTO) 86.4 % (42-75); PLATELET COUNT 246 X10'3 (140-440); RED BLOOD COUNT 3.41 X10'6 (4.20-5.60); RED CELL DISTRIBUTION WIDTH 13.8 % (11.5-14.5)
[2020-01-02 21:55] LABS: ALANINE AMINOTRANSFERASE 25 U/L (12-78); ALBUMIN 3.4 G/DL (3.4-5.0); ALBUMIN/GLOBULIN RATIO 0.9 (1.1-1.5); ALKALINE PHOSPHATASE 113 IU/L (46-116); ANION GAP 11 (8-16); ASPARTATE AMINO TRANSFERASE 25 U/L (10-37); BILIRUBIN,TOTAL 0.2 MG/DL (0.1-1.0); BLOOD UREA NITROGEN 44 MG/DL (7-18); BUN/CREATININE RATIO 25.6 (6.6-38.0); CALCIUM 9.3 MG/DL (8.5-10.1); CHLORIDE 107 MMOL/L (99-107); CREATININE 1.72 MG/DL (0.40-0.90); GLUCOSE 269 MG/DL (70-104); SODIUM 143 MMOL/L (135-145); TOTAL CARBON DIOXIDE 25.1 MMOL/L (24-32); TOTAL PROTEIN 7.3 G/DL (6.4-8.2); eGFR 28 ML/MIN
[2020-01-02 22:06] LABS: POTASSIUM 3.8 MMOL/L (3.5-5.1)
[2020-01-02 22:55] LABS: TROPONIN I < 0.04 NG/ML (0.0-0.05)
[2020-01-02] MEDS ORDERED: CefTRIAXone 2gm/D5W 50ml 50 ML IV ONE (23:10)
[2020-01-02 23:34] LABS: D-DIMER 0.78 MG/L FEU (0-0.50)
--- NOTE | 2020-01-02 23:34 | NUR ---
THE CURTAIN IN HER ROOM DOESN'T PROVIDE ADEQUATE PRIVACY FOR A CATH UA AND PT CAN AMBULATE SO AFTER HOSPITALIST DONE VISITING WITH THE PT SHE SAID SHE CAN WALK TO THE BR FOR A UA
[2020-01-02] MEDS ORDERED: furosemide 10 MG/1 ML 10ml inj IV ONE (23:45)
[2020-01-02] MEDS ORDERED: mag hydrox/Alum hydrox/simeth 30ml oral suspension PO PRN (23:50)
[2020-01-02] MEDS ORDERED: ondansetron/PF 4mg/2ml inj IV PRN (23:50)
[2020-01-02] MEDS ORDERED: magnesium 4gm in 100ml NS 100 ML IV PRN (23:50)
[2020-01-02] MEDS ORDERED: bisacodyl 10mg suppository rectal RC PRN (23:50)
[2020-01-02] MEDS ORDERED: potassium CL 10mEq/100ml bag 100 ML IV PRN ×2 (23:50)
[2020-01-02] MEDS ORDERED: magnesium 2GM in 50ml NS 50 ML IV PRN (23:50)
[2020-01-02] MEDS ORDERED: HYDROcodone/acetaminophen 5mg/325mg tablet PO PRN (23:50)
[2020-01-02] MEDS ORDERED: magnesium Cl slow-release 64mg tablet PO PRN (23:50)
[2020-01-02] MEDS ORDERED: acetaminophen 325mg tablet PO PRN ×2 (23:50)
[2020-01-02] MEDS ORDERED: potassium Cl 20 mEq SR tablet PO PRN ×2 (23:50)
[2020-01-02] MEDS ORDERED: magnesium hydroxide 30ml (MOM) UD suspension PO PRN (23:50)
[2020-01-03] MEDS ORDERED: insulin Lispro (HumaLOG) vial - multi-dose SQ SCH (00:05)
[2020-01-03] MEDS ORDERED: dextrose 50%-water 50ml dispensing syringe IV PRN ×2 (00:05)
[2020-01-03] MEDS ORDERED: glucagon, human recombinant 1mg kit SUBCUT PRN (00:05)
[2020-01-03] MEDS ORDERED: dextrose ORAL solution 15 GM/59 ML bottle PO PRN ×2 (00:05)
[2020-01-03] MEDS ORDERED: MESSAGE TO PHARMACY PO ONE (00:05)
[2020-01-03 00:06] LABS: CLARITY,URINE CLEAR (Clear); COLOR,URINE YELLOW (Yellow); GLUCOSE, URINE NEGATIVE (Neg); KETONES,URINE NEGATIVE (Neg); LEUKOCYTE ESTERASE ,URINE TRACE (Neg); NITRITES, URINE NEGATIVE (Neg); OCCULT BLOOD,URINE SMALL (Neg); PROTEIN,URINE 100 mg/dl (Neg); UROBILINOGEN,URINE 0.2 E.U/dL (0.2-1.0)
[2020-01-03 00:16] LABS: PHOSPHORUS 3.7 MG/DL (2.3-4.5)
[2020-01-03 00:21] LABS: BACTERIA,URINE FEW /HPF (Neg); RBC,URINE 0-2 /HPF (0-2); SQUAMOUS EPITHELIAL CELL,UR FEW /LPF (FEW); UA COLLECTION TYPE CLN CATCH MIDSTREAM
[2020-01-03 00:22] LABS: WBC CLUMPS,URINE FEW /HPF (NEGATIVE)
[2020-01-03 02:00] VITALS: BP 120/78
[2020-01-03 06:00] VITALS: BP 147/69
[2020-01-03 06:18] LABS: HEMOGLOBIN 10.7 g/dl (12.0-16.0); MEAN CORPUSCULAR HEMOGLOBIN 34.6 PG (27.0-31.0); MEAN CORPUSCULAR HGB CONC 33.6 g/dL (33.0-36.5); MEAN PLATELET VOLUME 9.1 FL (7.4-10.4); PLATELET COUNT 224 X10'3 (140-440); RED CELL DISTRIBUTION WIDTH 13.7 % (11.5-14.5); WHITE BLOOD COUNT 12.5 X10'3 (4.5-11.0)
[2020-01-03 06:49] LABS: ANION GAP 11 (8-16); BLOOD UREA NITROGEN 43 MG/DL (7-18); BUN/CREATININE RATIO 26.4 (6.6-38.0); CALCIUM 9.2 MG/DL (8.5-10.1); CHLORIDE 110 MMOL/L (99-107); CHOL/HDL RATIO 2.6 (0.00-4.99); CHOLESTEROL 155 MG/DL (0-200); CREATININE 1.63 MG/DL (0.40-0.90); GLUCOSE 95 MG/DL (70-104); HDL CHOLESTEROL 60 MG/DL (35-60); LDL CHOLESTEROL 83 MG/DL (50-100); MAGNESIUM 2.4 MG/DL (1.5-2.4); POTASSIUM 3.8 MMOL/L (3.5-5.1); SODIUM 147 MMOL/L (135-145); TOTAL CARBON DIOXIDE 25.9 MMOL/L (24-32); TRIGLYCERIDES 78 MG/DL (20-135); eGFR 30 ML/MIN
--- NOTE | 2020-01-03 06:49 | NUR ---
Patient in room [facility] 3013. I have received report from Augustus ANGUIANO and had the opportunity to ask questions and assume patient care.
[2020-01-03] MEDS: K and/or MAG REPLACEMENT MC SCH ×2 (08:00→20:00)
[2020-01-03] MEDS: atorvastatin 10mg tablet PO SCH (08:45)
[2020-01-03] MEDS: heparin, porcine 5000 units/ml vial SQ SCH ×2 (08:45→20:57)
[2020-01-03] MEDS: levoTHYROXINE 100mcg tablet PO SCH (08:45)
[2020-01-03] MEDS: furosemide 20 MG/2 ML vial IV SCH ×2 (08:50→20:56)
[2020-01-03 11:00] VITALS: BP 141/81
--- NOTE | 2020-01-03 14:33 | NUR ---
Pt with T2DM, current A1c is 7.0%. Attempted bedside visit however pt sleeping. Written DM education with referral to outpatient CDE course and RD contact information left at bedside. Will remain available. Addendum: 01/03/20 at [address] Amended: Links added.
[2020-01-03 15:00] VITALS: BP 141/68
--- NOTE | 2020-01-03 18:30 | NUR ---
Patient in room [facility]U 3013. I have received report from MYLA and had the opportunity to ask questions and assume patient care.
--- NOTE | 2020-01-03 18:41 | NUR ---
Problems reprioritized. Patient report given, questions answered & plan of care reviewed with Elena ANGUIANO.
[2020-01-03 19:00] VITALS: BP 110/86
[2020-01-03] MEDS: carVEDilol 3.125mg tablet PO SCH (20:56)
[2020-01-03] MEDS: lactobacillus rhamnosus 10,000 MMU CELLS/CAPSULE PO SCH (20:56)
[2020-01-03] MEDS ORDERED: insulin glargine (Lantus) pen - multi-dose SQ SCH (21:00)
[2020-01-03 22:00] VITALS: BP 143/75
[2020-01-03] MEDS ORDERED: CefTRIAXone/D5W-Rocephin 1gm 50 ML IV SCH (23:00)
[2020-01-04 02:00] VITALS: BP 130/62
[2020-01-04 06:08] LABS: HEMATOCRIT 31.1 % (35.0-45.0); HEMOGLOBIN 10.5 g/dl (12.0-16.0); MEAN CORPUSCULAR HEMOGLOBIN 34.9 PG (27.0-31.0); MEAN CORPUSCULAR HGB CONC 33.9 g/dL (33.0-36.5); MEAN CORPUSCULAR VOLUME 102.9 FL (78-98); MEAN PLATELET VOLUME 9.2 FL (7.4-10.4); PLATELET COUNT 219 X10'3 (140-440); RED BLOOD COUNT 3.02 X10'6 (4.20-5.60); RED CELL DISTRIBUTION WIDTH 13.6 % (11.5-14.5); WHITE BLOOD COUNT 5.8 X10'3 (4.5-11.0)
--- NOTE | 2020-01-04 06:13 | NUR ---
Problems reprioritized. Patient report given, questions answered & plan of care reviewed with GREGG.
--- NOTE | 2020-01-04 06:24 | NUR ---
Patient in room PCU 3013A. I have received report from Elena ANGUIANO and had the opportunity to ask questions and assume patient care.
[2020-01-04 06:30] VITALS: BP 167/72
[2020-01-04 06:44] LABS: ANION GAP 11 (8-16); BLOOD UREA NITROGEN 41 MG/DL (7-18); BUN/CREATININE RATIO 25.6 (6.6-38.0); CALCIUM 9.1 MG/DL (8.5-10.1); CHLORIDE 107 MMOL/L (99-107); GLUCOSE 135 MG/DL (70-104); MAGNESIUM 2.4 MG/DL (1.5-2.4); SODIUM 144 MMOL/L (135-145); TOTAL CARBON DIOXIDE 25.9 MMOL/L (24-32); eGFR 30 ML/MIN
[2020-01-04] MEDS: levoTHYROXINE 100mcg tablet PO SCH (07:49)
[2020-01-04] MEDS: atorvastatin 10mg tablet PO SCH (07:49)
[2020-01-04] MEDS: carVEDilol 3.125mg tablet PO SCH (07:50)
[2020-01-04] MEDS: heparin, porcine 5000 units/ml vial SQ SCH (07:50)
[2020-01-04] MEDS: furosemide 20 MG/2 ML vial IV SCH (07:50)
[2020-01-04] MEDS: lactobacillus rhamnosus 10,000 MMU CELLS/CAPSULE PO SCH (07:50)
[2020-01-04] MEDS: K and/or MAG REPLACEMENT MC SCH (08:00)
--- NOTE | 2020-01-04 08:27 | NUR ---
aircraft quality control inspector informed Primary that lab reported nares positive for MRSA. Paged MD to notify PAGER ID: [phone] MESSAGE: Patricia hercules [phone]. [address]. 3013A. 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
--- NOTE | 2020-01-04 09:29 | NUR ---
Paged PAGER ID: [phone] MESSAGE: Patricia hercules [phone]. Re [address] [id number]. Radiology called and said lung scan shows intermediate probability for PE, but would need CT to confirm.
[2020-01-04] MEDS ORDERED: acetylcysteine oral sol. 200 MG/ML 4ml vial PO ONE (09:35)
[2020-01-04] MEDS ORDERED: iohexol 350MG/ML 100ml bottle IV ONE (10:00)
[2020-01-04 11:00] VITALS: BP 117/57
--- NOTE | 2020-01-04 11:08 | NUR ---
Dr Blackburn on the floor, informed her that CTA r/t PE came back negative for central pulmonary embolus; also let her know that lab had just reported gram positive cocci in clusters, aerobic bottle from right arm. Addendum: 01/04/20 at 1127 by Patricia Adorno RN CORRECTION, WAS FROM ANEROBIC BOTTLE
[2020-01-04] MEDS ORDERED: COR3.125T PO (11:22)
[2020-01-04] MEDS ORDERED: FURO40TA4 PO (11:22)
[2020-01-04] MEDS ORDERED: LEVO500T2 PO (13:29)
--- NOTE | 2020-01-04 14:22 | NUR ---
Per MD, patient stable for discharge home. Discharge packet printed and given to patient, including Diabetic Survival Skills. Education provided and all questions answered. Tele monitor and IV removed. All belongings sent with patient. As it is Sunday and unable to make appointments, patient will call PCP tomorrow for followup appt. Patient escorted from hospital in wheelchair, escorted by staff and driven home by granddaughter in private vehicle.
[2020-01-04] MEDS ORDERED: acetylcysteine oral sol. 200 MG/ML 4ml vial PO SCH (20:00)
--- NOTE | 2020-01-06 15:41 | NUR ---
Case Management DC follow up: spoke to pt daughter/Gaviota Garcia via telephone: reports: pt "doing fine" status post- SOB: Denies acute/persistent CP, emergent general pain, worsening/emergent SOB, resp distress, NV, vertigo, syncope, ALVARADO, general/concerning bruising, bleeding, fever, diaphoreses, confusion. Verbalizes understanding of s/s that would warrant 9-11/ER visit for further evaluation. Verbalizes understanding of current and/or new Rx; taking as ordered, no ase noted r/t polypharmacy. pt did have some diarrhea/treating symptomatically w/OTC. Acknowledges need to schedule/keep follow up appts w/PCP/Greg May NP 01/06/20. Specialist(s) Family in process of moving to [facility] and have already made arrangements w/new providers. Acknowledged DC orders for follow up for repeat ECHO in 6 mo/card boxer. All questions/concerns addressed and answered at DC; Verbalizes understanding of post status after-care compliance. No further questions at this time.
== END 2020-01-04 14:22 | disposition home or self-care (01) | DRG 291 ==
LOC: ER 20:52 → ED HOLD 23:47 → PCU 3S 01-03 00:54
PROVIDERS: ADMIT Family Medicine; ATTEND Internal Medicine
DX: I13.0 Hypertensive heart and chronic kidney disease with heart failure and stage 1 through stage 4 chronic kidney disease, or unspecified chronic kidney disease (principal); G06.1 Intraspinal abscess and granuloma; I50.33 Acute on chronic diastolic (congestive) heart failure; J96.01 Acute respiratory failure with hypoxia; N17.9 Acute kidney failure, unspecified; N18.4 Chronic kidney disease, stage 4 (severe); D72.829 Elevated white blood cell count, unspecified; E03.9 Hypothyroidism, unspecified; E11.22 Type 2 diabetes mellitus with diabetic chronic kidney disease; E78.00 Pure hypercholesterolemia, unspecified; E78.5 Hyperlipidemia, unspecified; I35.0 Nonrheumatic aortic (valve) stenosis; Z86.61 Personal history of infections of the central nervous system; Z90.49 Acquired absence of other specified parts of digestive tract; Z90.710 Acquired absence of both cervix and uterus; Z96.653 Presence of artificial knee joint, bilateral; Z88.8 Allergy status to other drugs, medicaments and biological substances; E11.65 Type 2 diabetes mellitus with hyperglycemia; Z79.4 Long term (current) use of insulin
CPT/HCPCS: 36415; 71046; 71275; 78580; 80048; 80053; 80061; 81001; 81003; 82948; 83036; 83605; 83735; 83880; 84100; 84145; 84443; 84484; 85025; 85027; 85379; 87040; 87077; 87081; 87088; 87186; 93005; 93306; 97112; 97116; 97161; 97530; 99285; A9540; G0378; J0696; J1644; J1815; J1940; Q9967